=== PATIENT | male | born 2000 | race Caucasian/White ===

== ENCOUNTER 2023-04-18 01:06 | Emergency (ER) | payer OTHER, SELFPAY ==
--- OUTSIDE RECORDS SUMMARY | 2023-04-18 01:09 | XMS REPORT | Continuity of Care Document ---
:2000 Author Organization [facility] Address [address] [place] [address] [place] [id number] Care Team Providers Name Role Phone PCP, PATIENT DOES NOT HAVE A Primary Care Physician Unavaila ble UNKNOWN, ATTENDING Attending Clinician Unavailable Doctor Unassigned, [place] Attending Clinician Unavailable Vicente TORRES, Candace Kaiser Attending Clinician CANDACE ZHANG Attending Clinician Unavailable JONE LEARY Attending Clinician Unavailable Payers Payer Name Policy Type Policy Number Effective Date Expiration Date [facility] [id number] 2020 [facility] 00:00:00 Problems Condition Condition Condition Status Onset Resolution Last Treating Co mments Source Name Details Category Date Date Treatment Clinician Date No known No known Disease Unive rs active active ity of problems problems [facility] Allergies, Adverse Reactions, Alerts Allergy Allergy Status Severity Reaction(s) Onset Inactive Treating Comm ents Source Name Type Date Date Clinician NO KNOWN Drug Active Univers ALLERGIE Class ity of S [facility] Social History Social Habit Start Date Stop Date Quantity Comments Source Gender identity Universit y of [facility] Sexual orientation Univer sity [facility] History of Social 2021-12-23 2021-12-23 Univers ity of function 00:00:00 00:00:00 [facility] Exposure to 2021-12-12 2021-12-22 Not sure University SARS-CoV-2 (event) 00:00:00 16:24:00 [facility] Tobacco use and 2021-10-25 2021-10-25 Smokeless Universit y of exposure 00:00:00 00:00:00 tobacco non-user [facility] Sex Assigned At [birth year] Universit y of 00:00:00 00:00:00 [facility] Smoking Status Start Date Stop Date Source Never smoked tobacco [facility] Medications Ordered Filled Start Stop Current Ordering Indication Dosage Frequency Signature Comments Components Source Medication Medication Date Date Medication? Clinician (SIG) Name Name No known No Univers medications 4-29 ity of 17:19: [address] Vital Signs Vital Name Observation Time Observation Value Comments Source Body temperature 2021-12-22 21:30:00 36.44 [facility] height 2021-12-22 21:30:00 180.3 cm [facility] acute hospital Body weight 2021-12-22 21:30:00 79.969 kg [facility] acute hospital BMI 2021-12-22 21:30:00 24.59 kg/m2 General acute hospital Body mass index 2021-12-22 21:30:00 72.50 % Unive rsity of (BMI) [Percentile] [place] [facility] Per age and sex Branch Procedures Procedure Date / Time Performed Performing Clinician Sour e ASSIGNMENT OF BENEFITS 2023-04-17 16:25:07 Doctor Unassigned, No General acute hospital Encounters Start End Encounter Admission Attending Care Care Encounter Source Date/Time Date/Time Type Type Clinicians Facility Department ID 2023-04-17 2023-04-17 Outpatient R RUBEN [facility] [id number] Univers 11:20:00 11:20:00 ATTENDING ity [facility] 2023-04-17 2023-04-17 Orders Doctor WATTERS [id number] Univers 00:00:00 00:00:00 Only Unassigned, CLARISSA [id number] ity of [place] [facility] [id number] Gaudencio as [id number] [facility] salas 009 Branch 2021-12-22 2021-12-22 [facility] Vicente [facility] [id number] Univers 16:33:58 23:59:00 Encounter Candace MARVA [id number] ity of [facility] [id number] [phone] Id keshia GOSS 809 [facility] 2021-12-22 2021-12-22 Outpatient R VICENTE [facility] [id number] Univers 16:33:58 23:59:00 CANDACE gimenez [facility] 2021-12-22 2021-12-22 Outpatient R VICENTE [facility] [id number] Univers 16:30:00 17:04:13 CANDACE gimenez [facility] 2021-12-22 2021-12-22 [facility] [id number] Univers 16:30:00 17:04:13 Visit Candace SPECIALTY [id number] ity of [facility] [id number] [id number] [address] 2021-10-25 2021-10-25 Outpatient Angela LEARY [facility] [id number] Univers 20:00:00 20:24:05 JONE galindoswapnil [facility] 2021-10-25 2021-10-25 Orders Doctor JANENE [id number] Univers 00:00:00 00:00:00 Only Unassigned, CLARISSA [id number] ity of [place] [facility] [id number] Gaudencio as [phone] [facility] 009 Branch 2021-10-25 2021-10-25 Letter Doctor JANENE [id number] Univers 00:00:00 00:00:00 (Out) Unassigned, CLARISSA [id number] ity of [place] [facility] [id number] Gaudencio as [phone] [facility] 044 Branch Results This patient has no known results.
--- NOTE | 2023-04-18 01:43 | ER ---
Nurse's Notes [facility] Name: Leonardo Clark Age: 22 yrs Sex: Male : 2000 Arrival Date: 04/18/2023 Time: 01:06 Bed 6 Private MD: Diagnosis: Chest wall contusion Presentation: 04/18 01:16 Chief complaint: Patient states: INJURED LEFT SIDE OF THE RIB ON SUNDAY. PAIN SINCE rv THEN. FELT CRACK LIKE PAIN/SOUND ON SAME INJURY TONIGHT. Coronavirus screen: At this time, the client does not indicate any symptoms associated with coronavirus-19. Ebola Screen: No symptoms or risks identified at this time. Initial Sepsis Screen: Does the patient meet any 2 criteria? No. Patient's initial sepsis screen is negative. Does the patient have a suspected source of infection? No. Patient's initial sepsis screen is negative. Risk Assessment: Do you want to hurt yourself or someone else? Patient reports no desire to harm self or others. Onset of symptoms was April 18, 2023. 01:16 Method Of Arrival: Ambulatory rv 01:16 Acuity: MELODY 4 rv Triage Assessment: 01:17 General: Appears comfortable, Behavior is calm, cooperative. Pain: Complains of pain in rv LEFT RIBS. Neuro: Level of Consciousness is awake, alert, obeys commands, Oriented to person, place, time, situation. Cardiovascular: Capillary refill < 3 seconds. Respiratory: Airway is patent Respiratory effort is even, unlabored, Breath sounds are clear bilaterally. Derm: Skin is intact. Historical: - Allergies: :17 No Known Allergies; rv - PMHx: 01:17 None; rv - PSHx: :17 None; rv - Immunization history:: Adult Immunizations up to date. - Social history:: Smoking status: Patient denies any tobacco usage or history of. Screenin:18 [facility] ED Fall Risk Assessment (Adult) History of falling in the last 3 months, rv including since admission No falls in past 3 months (0 pts) Confusion or Disorientation No (0 pts) Intoxicated or Sedated No (0 pts) Impaired Gait No (0 pts) Mobility Assist Device Used No (0 pt) Altered Elimination No (0 pt) Score/Fall Risk Level 0 - 2 = Low Risk Oriented to surroundings, Maintained a safe environment, Educated pt \T\ family on fall prevention, incl call for assistance when getting out of bed, Assessed \T\ reinforced patient's understanding of fall precautions, Provided non-skid footwear, Hourly rounding (assess needs \T\ fall precautionary measures) done, Used ambulatory aids as needed (educated on \T\ assisted with), Used gait belt as appropriate. Abuse screen: Denies threats or abuse. Denies injuries from another. Nutritional screening: No deficits noted. Tuberculosis screening: No symptoms or risk factors identified. Assessment: 01:16 General: Appears in no apparent distress. comfortable, well groomed, well developed, pf1 Behavior is calm, cooperative, appropriate for age, quiet. 01:16 Pain: Complains of pain in left rib cage pain. Neuro: No deficits noted. Level of pf1 Consciousness is awake, alert, obeys commands, Oriented to person, place, time, situation. Cardiovascular: No deficits noted. Capillary refill < 3 seconds Patient's skin is warm and dry. Respiratory: Airway is patent Respiratory effort is even, unlabored, Respiratory pattern is regular, symmetrical, Breath sounds are clear bilaterally. GI: No deficits noted. No signs and/or symptoms were reported involving the gastrointestinal system. : No deficits noted. No signs and/or symptoms were reported regarding the genitourinary system. EENT: No deficits noted. No signs and/or symptoms were reported regarding the EENT system. Derm: No deficits noted. No signs and/or symptoms reported regarding the dermatologic system. Vital Signs: 01:16 BP 166 / 74; Pulse 62; Resp 16; Temp 98; Pulse Ox 99% ; Weight 86.18 kg; Height 6 ft. 0 rv in. ; 02:08 BP 131 / 82; Pulse 65; Resp 16; Pulse Ox 97% on R/A; pf1 01:16 Body Mass Index 25.77 (86.18 kg, 182.88 cm) rv ED Course: 01:10 Patient arrived in ED. jj6 01:10 Ricky Lebron MD is Attending Physician. sp3 01:12 Iris Barreto, KIESHA is Primary Nurse. kd3 01:17 Triage completed. rv 01:18 Arm band placed on right wrist. EKG completed in triage. Results shown to MD. rv 01:19 Patient has correct armband on for positive identification. Provided Education on: rv FRACTURE. 01:19 No provider procedures requiring assistance completed. rv 01:37 Ribs Left XRAY In Process Unspecified. EDMS 01:37 CXR XRAY In Process Unspecified. EDMS 02:00 Joao wrap to rib cage. pf1 02:08 Patient did not have IV access during this emergency room visit. pf1 Administered Medications: No medications were administered Medication: 01:19 VIS not applicable for this client. rv Outcome: 01:42 Discharge ordered by . sp3 02:08 Discharged to home ambulatory, with friend. pf1 02:08 Condition: improved 02:08 Discharge instructions given to patient, Instructed on discharge instructions, follow up and referral plans. Demonstrated understanding of instructions, follow-up care, medications, Prescriptions given X 1. 02:09 Patient left the ED. pf1 Signatures: Dispatcher [employer] Shahab Collins, RN RN rv Ricky Lebron MD MD sp3 Nanda Patterson Kyli, RN RN kd3 Lou Rosales RN RN pf1
--- NOTE | 2023-04-18 01:43 | EDPHYS ---
Physician Documentation [facility] Name: Leonardo Clark Age: 22 yrs Sex: Male : 2000 Arrival Date: 04/18/2023 Time: 01:06 Bed 6 Private MD: ED Physician Ricky Lebron HPI: 04/18 01:15 This 22 yrs old Male presents to ER via Unassigned with complaints of PAIN IN RIBS. sp3 01:15 22-year-old male with no significant past medical history presents with left-sided sp3 chest pain secondary to "possible rib fracture because I was wrestling with my body" that occurred 2 nights ago. Patient states the pain has been persistent and he is now concerned about possible rib fracture. He denies shortness of breath, right-sided chest pain, back pain, abdominal pain, nausea, vomiting, diarrhea, any other signs or symptoms on review of systems at this time.. Historical: - Allergies: 01:17 No Known Allergies; rv - PMHx: 01:17 None; rv - PSHx: 01:17 None; rv - Immunization history:: Adult Immunizations up to date. - Social history:: Smoking status: Patient denies any tobacco usage or history of. ROS: 01:16 Constitutional: Negative for fever, chills, and weight loss, Eyes: Negative for injury, sp3 pain, redness, and discharge, ENT: Negative for injury, pain, and discharge, Neck: Negative for injury, pain, and swelling, Cardiovascular: Negative for chest pain, palpitations, and edema, Abdomen/GI: Negative for abdominal pain, nausea, vomiting, diarrhea, and constipation, Back: Negative for injury and pain, : Negative for injury, bleeding, discharge, and swelling, MS/Extremity: Negative for injury and deformity, Skin: Negative for injury, rash, and discoloration, Neuro: Negative for headache, weakness, numbness, tingling, and seizure, Psych: Negative for depression, anxiety, suicide ideation, homicidal ideation, and hallucinations, Allergy/Immunology: Negative for hives, rash, and allergies, Endocrine: Negative for neck swelling, polydipsia, polyuria, polyphagia, and marked weight changes. 01:16 All other systems are negative. Exam: 01:16 Constitutional: This is a well developed, well nourished patient who is awake, alert, sp3 and in no acute distress. Head/Face: Normocephalic, atraumatic. Eyes: Pupils equal round and reactive to light, extra-ocular motions intact. Lids and lashes normal. Conjunctiva and sclera are non-icteric and not injected. Cornea within normal limits. Periorbital areas with no swelling, redness, or edema. Neck: Trachea midline, no thyromegaly or masses palpated, and no cervical lymphadenopathy. Supple, full range of motion without nuchal rigidity, or vertebral point tenderness. No Meningismus. Cardiovascular: Regular rate and rhythm with a normal S1 and S2. No gallops, murmurs, or rubs. Normal PMI, no JVD. No pulse deficits. Respiratory: Lungs have equal breath sounds bilaterally, clear to auscultation and percussion. No rales, rhonchi or wheezes noted. No increased work of breathing, no retractions or nasal flaring. Abdomen/GI: Soft, non-tender, with normal bowel sounds. No distension or tympany. No guarding or rebound. No evidence of tenderness throughout. Back: No spinal tenderness. No costovertebral tenderness. Full range of motion. Skin: Warm, dry with normal turgor. Normal color with no rashes, no lesions, and no evidence of cellulitis. MS/ Extremity: Pulses equal, no cyanosis. Neurovascular intact. Full, normal range of motion. Neuro: Awake and alert, GCS 15, oriented to person, place, time, and situation. Cranial nerves II-XII grossly intact. Motor strength 5/5 in all extremities. Sensory grossly intact. Cerebellar exam normal. Normal gait. Psych: Awake, alert, with orientation to person, place and time. Behavior, mood, and affect are within normal limits. 01:16 Chest/axilla: Patient has point tenderness just anterior to the midaxillary line ribs 6 and 7 area. Very small superficial abrasion is noted. Breath sounds are equal bilaterally.. Vital Signs: 01:16 BP 166 / 74; Pulse 62; Resp 16; Temp 98; Pulse Ox 99% ; Weight 86.18 kg; Height 6 ft. 0 rv in. ; 02:08 BP 131 / 82; Pulse 65; Resp 16; Pulse Ox 97% on R/A; pf1 01:16 Body Mass Index 25.77 (86.18 kg, 182.88 cm) rv MDM: 01:13 Patient medically screened. sp3 01:17 Data reviewed: radiologic studies. ED course: 22-year-old with chest contusion versus sp3 possible rib fracture. Will obtain chest x-ray and rib series on the left side. Disposition pending x-rays with likely discharge.. 01:41 Data reviewed: vital signs. ED course: X-rays demonstrate no fracture on my read. Chest sp3 x-ray also demonstrates full lung expansion and no evidence of pneumothorax or hemothorax. Costophrenic angles are normal.. 04/18 01:15 Order name: Ribs Left XRAY sp3 04/18 01:15 Order name: CXR XRAY sp3 04/18 02:07 Order name: Joao Wrap; Complete Time: 02:07 pf1 04/18 02:07 Order name: Ice pack; Complete Time: 02:07 pf1 Administered Medications: No medications were administered Disposition Summary: 04/18/23 01:42 Discharge Ordered Location: Home sp3 Condition: Stable sp3 Diagnosis - Chest wall contusion sp3 Followup: sp3 - With: Private Physician - When: Upon discharge from the Emergency Department - Reason: Continuance of care Discharge Instructions: - Discharge Summary Sheet sp3 - Chest Contusion, Adult sp3 Forms: - Medication Reconciliation Form sp3 - Thank You Letter sp3 - Antibiotic Education sp3 - Prescription Opioid Use sp3 - Patient Portal Instructions sp3 - Leadership Thank You Letter sp3 Prescriptions: - Diclofenac Sodium 75 mg Oral Tablet Sustained Release - take 1 tablet by ORAL route 2 times per day; 30 tablet; Refills: 0, Product sp3 Selection Permitted Signatures: Dispatcher [employer] Shahab Collins RN RN rv Ricky Lebron MD MD sp3 Lou Rosales RN RN pf1
[2023-04-18 02:13] VITALS: TEMP 98
[2023-04-18 02:14] VITALS: BP 131/82; O2SAT 97
--- NOTE | 2023-04-18 12:29 | RAD REPORT ---
EXAM DESCRIPTION: RAD - Chest Single View - 04/18/2023 1:35 am HISTORY: Trauma COMPARISON: None. TECHNIQUE: Chest 1 View AP FINDINGS: Trachea midline. Heart size and pulmonary vessels within normal limits. Lungs clear without evidence of contusion, consolidation, mass, or significant pulmonary edema. No hemothorax or pneumothorax. No free air in upper abdomen. Bones unremarkable without fracture. IMPRESSION: Normal chest radiograph. Electronically signed by: Reynaldo Leon MD 04/18/2023 1:58 AM CDT Due to temporary technical issues with the PACS/Fluency reporting system, reports are being signed by the in house radiologists without review as a courtesy to insure prompt reporting. The interpreting radiologist is fully responsible for the content of the report.
--- NOTE | 2023-04-18 12:31 | RAD REPORT ---
EXAM DESCRIPTION: RAD - Ribs Left - 04/18/2023 1:35 am CLINICAL HISTORY: Pain, Trauma COMPARISON: None TECHNIQUE: Left Ribs 2 Views FINDINGS: No fracture. No significant sclerotic/lytic bone lesion. No lung contusion, hemothorax, or pneumothorax. IMPRESSION: Normal left ribs radiographs Electronically signed by: Reynaldo Leon MD 04/18/2023 2:01 AM CDT Due to temporary technical issues with the PACS/Fluency reporting system, reports are being signed by the in house radiologists without review as a courtesy to insure prompt reporting. The interpreting radiologist is fully responsible for the content of the report.
== END 2023-04-18 02:09 | disposition home or self-care (01) ==
LOC: ER 01:06
DX: S20.212A Contusion of left front wall of thorax, initial encounter (principal)
CPT/HCPCS: 71045